=== PATIENT | male | born 1995 | race African-American/Black ===

== ENCOUNTER 2023-06-21 15:14 | Observation (INO) | payer BC, SELFPAY ==
--- NOTE | ~2023-06-21 | CT_ITS ---
EXAMINATION: CT thoracic spine wo con DATE: 06/21/2023 16:53 INDICATION: Mid back pain between the scapulae TECHNIQUE: Computed tomography (CT) of the thoracic spine was performed without intravenous contrast. Automated exposure control and iterative reconstruction technique were employed. The dose-length pro duct was 1598.33 mGy-cm. COMPARISON: None FINDINGS: Alignment is normal. Vertebral body heights are normal. No fracture. There is however a destructive l esion with aggressive appearing osteolysis involving the right lamina and pedicle of C7. No evident s urrounding inflammatory changes to suggest infection and resulting in high suspicion for malignancy. Mild disc height loss at T3-T4 through T9-T10 with tiny endplate osteophytes at a few levels. Central canal appears widely patent throughout. Multilevel minimal to mild bilateral thoracic facet osteoart hritis. No neural foraminal stenosis. Visualized portion of the lungs are clear. Paravertebral soft t issues are unremarkable. IMPRESSION: 1. Progressive appearing destructive lesion involving the right lamina and pedicle of C7 without surr ounding inflammatory stranding which raises concern for malignancy. Recommend further evaluation with pre and postcontrast MRI of the cervical spine. Given location there may also be involvement of the right vertebral artery and could also consider carotid CT angiogram. 2. Mild thoracic spondylosis. Reviewed, dictated and finalized at location A. IMPRESSION: 1. Progressive appearing destructive lesion involving the right lamina and pedi fidencio of C7 without surrounding inflammatory stranding which raises concern for m alignancy. Recommend further evaluation with pre and postcontrast MRI of the ce rvical spine. Given location there may also be involvement of the right vertebr al artery and could also consider carotid CT angiogram. 2. Mild thoracic spondylosis.
--- NOTE | ~2023-06-21 | MR_ITS ---
EXAMINATION: MR cervical spine wo/w con DATE: 06/22/2023 08:06 INDICATION: Lytic lesion at C7 TECHNIQUE: Magnetic resonance imaging (MRI) of the cervical spine was performed with 100 mL Omnipaque -350 intravenous contrast. Sequences included sagittal T2-weighted FSE, sagittal T2-weighted FS FSE, sagittal T1-weighted FSE, axial MERGE and axial T2-weighted FSE. COMPARISON: CT studies dated 06/21/2023 FINDINGS: Bone alignment is normal. Vertebral body heights are normal. Again noted is a destructive process in volving the right pedicle, lateral mass and transverse processes of C7. There is marrow edema and enh ancement extending into the right side of the vertebral body and right lamina of C7 but without signi ficant loss of the T1 hyperintense marrow fat signal which remains hyperintense to skeletal muscle. T here is decreased T1 signal, increased T2 signal and enhancement in the region of osteolysis. There i s an 11 x 10 x 8 mm central nonenhancing region which could represent central necrosis or potentially fluid collection such as abscess. Small amount of likely reactive edema and non masslike enhancement in the immediately adjacent paraspinal musculature. The region of abnormal enhancement involves both the right C6-C7 and C7-T1 neural foramina. There is no evident intrathecal involvement or mass effec t upon the thecal sac. No other bone lesions identified with otherwise normal marrow signal throughou t. Intervertebral discs are normal with normal height and signal. Cord signal intensity is normal. No abnormally enhancing cord lesions. The following disc levels are specifically discussed: C2-C3: The disc does not extend beyond the endplate margin. There is no uncovertebral joint osteoarth ritis. There is no facet joint osteoarthritis. There is no neural foraminal stenosis. There is no deirdre tral canal stenosis. C3-C4: The disc does not extend beyond the endplate margin. There is no uncovertebral joint osteoarth ritis. There is no facet joint osteoarthritis. There is no neural foraminal stenosis. There is no deirdre tral canal stenosis. C4-C5: Disc is mildly bulging. There is no uncovertebral joint osteoarthritis. There is no facet join t osteoarthritis. There is no neural foraminal stenosis. There is no central canal stenosis. C5-C6: The disc does not extend beyond the endplate margin. There is no uncovertebral joint osteoarth ritis. There is no facet joint osteoarthritis. There is no neural foraminal stenosis. There is no deirdre tral canal stenosis. C6-C7: The disc does not extend beyond the endplate margin. There is mild right uncovertebral joint o steoarthritis. There is no facet joint osteoarthritis. There is no stenosis of the osseous margins of the neural foramina. There is however replacement of the fat signal within the right neural foramen resulting from the enhancing soft tissue. There is no central canal stenosis. C7-T1: The disc does not extend beyond the endplate margin. There is no uncovertebral joint osteoarth ritis. There is no facet joint osteoarthritis. There is no stenosis of the osseous margins of the vadim ral foramina. There is however placement of the facet within the right neural foramen resulting from the enhancing soft tissue. There is no central canal stenosis. IMPRESSION: 1. Destructive process involving the right pedicle, lateral mass and transverse process of C7 with en hancing tissue extending into an replacing the fat signal at the right C6-C7 and C7-T1 neural foramen . Small central nonenhancing region which could represent central necrosis in the setting of malignan cy or small abscess in the setting of osteomyelitis. The elevated CRP level and sedimentation rate ra ises concern for the latter. 2. Otherwise unremarkable study with no other bone lesions and with negligible cervical spondylosis. Reviewed, dictated and finalized at location A.
--- NOTE | ~2023-06-21 | CT_ITS ---
EXAMINATION: CT cervical spine wo con DATE: 06/21/2023 16:53 INDICATION: neck painX2 weeks, radicular pain down arm TECHNIQUE: Computed tomography (CT) of the cervical spine was performed without intravenous contrast. Automated exposure control and iterative reconstruction technique were employed. The dose-length pro duct was 448.77 mGy-cm. COMPARISON: None. FINDINGS: Vertebral Body Alignment: Intact. Craniocervical and atlantoaxial alignment: Moderate degenerative change. Alignment intact. Osseous structures/fracture: Aggressive appearing lytic lesion in the right lateral aspect of C7 invo lving the right lamina and pedicle. No evidence of acute fracture. Cervical soft tissues: The paraspinal soft tissues planes are maintained. Degenerative changes: No significant degenerative changes. IMPRESSION: Aggressive lytic lesion involving the lateral elements of C7, concerning for malignancy. Recommend MR I of the cervical spine without and with contrast for further characterization. Given the location, a lso consider CT angiogram of the neck to evaluate for vertebral artery involvement. No acute fracture or traumatic malalignment in the cervical spine. Reviewed, dictated and finalized at location K. IMPRESSION: Aggressive lytic lesion involving the lateral elements of C7, concerning for ma lignancy. Recommend MRI of the cervical spine without and with contrast for fur ther characterization. Given the location, also consider CT angiogram of the ne ck to evaluate for vertebral artery involvement. No acute fracture or traumatic malalignment in the cervical spine.
--- NOTE | ~2023-06-21 | CT_ITS ---
EXAMINATION: CT chest abdomen pelvis w con DATE: 06/21/2023 20:33 INDICATION: malignancy w/u, C7 lesion, pulmonary nodule . TECHNIQUE: Computed tomography (CT) of the chest, abdomen, and pelvis was performed with 100 mL Omnip aque-350 intravenous contrast. Automated exposure control and iterative reconstruction technique were employed. The dose-length product was 1393.18 mGy-cm. COMPARISON: CT thoracic, cervical spine, and CTA brain carotid performed on the same date. FINDINGS: CHEST: Thoracic aorta: No significant dilation or calcification. Lung parenchyma and airways: Lungs and airways are clear. Thoracic inlet, axillae and chest wall: No thyroid or soft tissue mass. No axillary lymphadenopathy. Mediastinum: No mass or lymphadenopathy. Heart and pericardium: Normal heart size. No pericardial effusion. Coronary artery calcifications: Absent. Pleura: No effusion or mass. Thoracic bones: No acute osseous finding in the chest. ABDOMEN/PELVIS: Liver: Normal. Biliary/Gallbladder: Gallbladder is normal. No bile duct dilation. Pancreas: No mass or duct dilation. Spleen: Normal. Adrenals:No mass. Kidneys: No suspicious mass, obstructing stone, or hydronephrosis. GI tract: Mild distal esophageal and gastric wall edema. No small or large bowel dilation. Normal armen endix. Mesentery/Peritoneum: No ascites, mass, or free air. Retroperitoneum: No mass Pelvis: Pelvic organs are within normal limits Soft Tissues: Soft tissues and body wall unremarkable. Abdominopelvic bones: No acute osseous finding in the abdomen/pelvis. IMPRESSION: Redemonstration of the lytic right lateral C7 lesion. Posterior, pleural-based left upper lobe nodule, more consistent in appearance with atelectasis or be nign scarring/thickening, noting that malignancy cannot be excluded by imaging alone. Otherwise, no CT evidence of primary malignancy. Esophagitis/gastritis. Reviewed, dictated and finalized at location K. IMPRESSION: Redemonstration of the lytic right lateral C7 lesion. Posterior, pleural-based left upper lobe nodule, more consistent in appearance with atelectasis or benign scarring/thickening, noting that malignancy cannot b e excluded by imaging alone. Otherwise, no CT evidence of primary malignancy. Esophagitis/gastritis.
--- NOTE | ~2023-06-21 | CT_ITS ---
EXAMINATION: CTA brain carotid DATE: 06/21/2023 18:12 INDICATION: C7 lesion, concern for vertebral artery involvemen TECHNIQUE: Computed tomographic angiography (CTA) of the head was performed without and with 100 mL O mnipaque-350 intravenous contrast. CTA of the neck was performed with intravenous contrast. Automated exposure control and iterative reconstruction technique were employed. The dose-length product was 1 613.72 mGy-cm. Maximum intensity projection and volume rendered 3D-reconstructions were created by filiberto owens technologist on a separate workstation. COMPARISON: CT cervical and thoracic spine, same date. FINDINGS: CT BRAIN: No acute large vessel infarct, intracranial hemorrhage, mass, or hydrocephalus. Retention cysts/polyp s in the inferior bilateral maxillary sinuses. No abnormal enhancing lesion. Symmetric parenchymal en hancement. Patent cerebral veins. CTA HEAD: No large vessel occlusion, aneurysm, high flow vascular malformation, nidus or extravasation. CTA NECK: Aortic arch and proximal great vessels: Normal arch anatomy. Right common carotid, carotid bifurcation, and internal carotid artery: No plaque.There is 0% stenosi s of the proximal right internal carotid artery relative to normal distal artery lumen diameter (NASC ET criteria). Left common carotid, carotid bifurcation, and internal carotid artery: No plaque.There is 0% stenosis of the proximal left internal carotid artery relative to normal distal artery lumen diameter (NASCET criteria). Vertebral arteries: No significant plaque or stenosis. Other findings: Redemonstration of the aggressive right lateral C7 lesion no enhancing associated sof t tissue or inflammatory change. 9 mm pleural-based nodule in the left upper lobe. IMPRESSION: No large vessel occlusion or significant carotid/vertebral stenosis. Aggressive osseous lesion at C7, without involvement of the adjacent traversing vertebral artery. 9 mm pleural-based left upper lobe nodule. Reviewed, dictated and finalized at location K.
[2023-06-21 15:26] VITALS: BP 166/92; PULSE 86; RESP 18; TEMP 36.7; O2SAT 100
--- NOTE | 2023-06-21 16:45 | PC.NURSE ---
pt taken for CT at this time
[2023-06-21] MEDS: ACETAMINOPHEN 500 MG TABLET 1000 MG PO (17:03)
[2023-06-21] MEDS: KETOROLAC (*BKC) 60 MG/2 ML VIAL IM (17:03)
--- NOTE | 2023-06-21 17:18 | ED.BACK ---
HPI - Back Pain/Injury General Chief Complaint: Back Pain/Injury <NOEL Barnhart Last Filed: 06/21/23 20:50> Stated Complaint: back/neck pain <NOEL Barnhart Last Filed: 06/21/23 20:50> Time Seen by Provider: 06/21/23 15:32 <NOEL Barnhart Last Filed: 06/21/23 20:50> Source: patient <NOEL Barnhart Last Filed: 06/21/23 20:50> Mode of arrival: ambulatory <NOEL Barnhart Last Filed: 06/21/23 20:50> Limitations: no limitations <NOEL Barnhart Last Filed: 06/21/23 20:50> History of Present Illness HPI Narrative: Patient is a 27-year-old male who presents to the ED with report of right-sided back and neck pain. Patient reports he was working out on a bike 2 weeks ago and felt pain in his right upper back. He has had persistent pain since then, extending down from his neck on the right side and between his shoulder blades. He states pain is worse with movement, turning his head left or right or looking downward. He has had difficulty at work because of the pain. He is attempting to start FMLA with his primary care doctor. Patient reports having intermittent tingling down his right arm, but denies weakness or numbness. He has been taking ibuprofen for the pain. He has not taken anything for pain today. <NOEL Barnhart Last Filed: 06/21/23 20:50> Related Data Home Medications: Home Medications Medication Instructions Recorded Confirmed escitalopram oxalate 20 mg tablet 20 mg PO DAILY 06/21/23 06/21/23 ibuprofen 200 mg tablet 400 mg PO Q6H PRN Pain, Mild 06/21/23 06/21/23 <NOEL Barnhart Last Filed: 06/21/23 20:50> Allergies/Adverse Reactions: Allergies Allergy/AdvReac Type Severity Reaction Status Date / Time No Known Allergies Allergy Verified 06/21/23 15:25 <Eugenie Monreal PA-C - Last Filed: 06/21/23 20:50> Review of Systems Review of Systems: CONSTITUTIONAL: Denies fever, chills, or sweats. CARDIOVASCULAR: Denies chest pain. RESPIRATORY: Denies dyspnea. GASTROINTESTINAL: Denies abdominal pain, nausea, vomiting. MUSCULOSKELETAL: See HPI. NEUROLOGIC: See HPI. <Eugenie Monreal PA-C - Last Filed: 06/21/23 20:50> All systems reviewed & are unremarkable except as noted in HPI and below <Eugenie Monreal PA-C - Last Filed: 06/21/23 20:50> PMFSH Family History Family History: Family History (Updated 06/21/23 @ 23:30 by Svetlana Potter RN) Father Diabetes mellitus Grandparent Diabetes mellitus <Eugenie Monreal PA-C - Last Filed: 06/21/23 20:50> Social History Social History: Social History Smoking status: Never smoker Alcohol intake: never Substance use: never Lack of Transportation: No Lack of Food: Never True Current Housing: I Have Housing Concerned About Future Housing: No Difficulty Paying Gas/Electric Bills: No Difficulty Paying for Meds: No Currently Unemployed: No Education: High School Diploma/GED Difficulty w/ Childcare or Family Care: No Spiritual care concerns: No <Eugenie Monreal PA-C - Last Filed: 06/21/23 20:50> Exam Narrative: GENERAL: Well appearing, well-nourished, non-toxic, in no acute distress. HEAD: Normocephalic, atraumatic. NECK: Supple. No adenopathy, no masses. Mild lower midline cervical spinal tenderness. No palpable bony deformities. Right sided paraspinal muscle tenderness extending into trapezius. RESPIRATORY: Airway patent, respirations nonlabored. Clear to auscultation bilaterally, no rales, rhonchi, wheezing. CARDIOVASCULAR: Regular rate and rhythm without murmurs, rubs, or gallops. Peripheral pulses 2+ and equal bilaterally. ABDOMINAL: Soft, nontender, nondistended, no hepatosplenomegaly. Normoactive BS. MUSCULOSKELETAL: Moves all extremities. Strength/ROM intact without
[2023-06-21 18:04] LABS: Estimated CRCL calculation 93 ml/min; Estimated Glomerular Filt Rate > 60
[2023-06-21 18:31] LABS: Basophils Percent Auto 0.4 % (0.2-1.2); Hematocrit 39.9 % (42.0-52.0); Immature Granulocyte Absolute 0.01 K/mm3 (0.00-0.031); Immature Granulocyte Percent A 0.2 % (0-0.5); Lymphocytes Absolute Auto 1.38 K/mm3 (0.9-3.2); Mean Corpuscular HGB Conc 32.6 g/dl (32-36); Mean Corpuscular Hemoglobin 29.5 pg (26-34); Mean Corpuscular Volume 90.7 fl (80-100); Mean Platelet Volume 10.1 fl (7.4-10.4); Monocytes Absolute Auto 0.3 K/mm3 (0.1-0.6); Monocytes Percent Auto 5.6 % (2.6-8.5); Neutrophils Absolute Auto 3.8 K/mm3 (1.3-6.7); Neutrophils Percent Auto 68.8 % (45.5-73.1); Platelet Count Result 266 k/mm3 (150-375); Red Cell Distribution Width 13.2 % (11.5-14.5); White Blood Count 5.5 K/mm3 (4.5-10.0)
[2023-06-21 18:35] LABS: CRP 1.4 mg/dL (<1.0)
[2023-06-21 18:45] LABS: Prothrombin Time 13.8 Seconds (11.1-14.7)
[2023-06-21 18:46] LABS: Partial Thromboplastin Time 30.2 SECONDS (22.3-36.8)
[2023-06-21 18:50] LABS: Alanine Aminotransferase 28 U/L (6-50); Albumin Level 4.8 g/dL (3.5-5.1); Alkaline Phosphatase 81 U/L (38-126); Anion Gap 10 mmol/L (8-16); Aspartate Amino Transferase 33 U/L (17-59); Bilirubin,Total 0.6 mg/dL (0.2-1.3); Blood Urea Nitrogen 15 mg/dL (9-20); Calcium 9.7 mg/dL (8.4-10.2); Carbon Dioxide 24 mmol/L (22-30); Chloride 108 mmol/L (98-107); Estimated CRCL calculation 109 ml/min; Estimated Glomerular Filt Rate > 60; Glucose 103 mg/dL (65-110); Potassium 3.9 mmol/L (3.4-5.0); Sodium 142 mmol/L (137-145)
[2023-06-21 19:02] VITALS: BP 150/78; PULSE 88; RESP 16; O2SAT 100
[2023-06-21 19:30] LABS: Erythrocyte Sedimentation Rate 25 mm/hr (0-20)
[2023-06-21 20:11] VITALS: BP 138/77; PULSE 68; RESP 18; O2SAT 100
[2023-06-21 22:41] VITALS: BP 128/69; PULSE 75; RESP 18; O2SAT 100
[2023-06-21 22:55] VITALS: BP 130/71; PULSE 64; RESP 18; TEMP 36.3; O2SAT 99; BMI 35.7
--- NOTE | 2023-06-21 22:56 | ADMGEN ---
This patient, Albaro Balbuena, was admitted to Medical Room 246-01. Patient/family oriented to hospital policies and general routines including ID bracelet, bed and alarms, visiting hours, pain management, procedures, bathroom and other care routines, personal items, smoking policy, room service/diet, and visiting hours. Information on how to activate the Rapid Response Team has been discussed. Patient/Family are encouraged to report perceived risks to care and to ask questions if they do not understand what they are told or what they should do.
[2023-06-22] MEDS: GABAPENTIN 300 MG CAPSULE PO ×2 (00:02→08:25)
[2023-06-22] MEDS: ZOLPIDEM TARTRATE (*CRX) 5 MG TABLET PO (00:02)
[2023-06-22 05:25] VITALS: BP 130/67; PULSE 66; RESP 18; TEMP 37.1; O2SAT 100
--- NOTE | 2023-06-22 08:10 | PM.IMHP ---
H&P: HPI History of Present Illness Date/Time: 06/22/23 08:10 Chief Complaint: Back pain/injury Back/neck pain Narrative: Patient is a 27-year-old male who presented to the ED with report of right side back and neck pain. Patient stated that he was working out and started to feel pain in his right upper back while riding a bike which happened 2 weeks ago. He reports the pain radiates down his arm and noted some decreased sensation as well. It was interfering with work since his job is more physical and his pain increased with movement. He is currently attempting to start FMLA with his PCP. he has taken ibuprofen for pain at home which provides him enough symptom relief as long as he is not doing strenuous work. Workup in ER includes CT cervical spine without contrast which revealed an aggressive lytic lesion involving the lateral elements of C7, concerning for malignancy. Given the location the lesion on CT a of the head and neck was also done due to concerns for vertebral artery involvement. A CTA of of brain and carotid arteries revealed aggressive osseous lesion at C7, without involvement of the adjacent transversing vertebral artery, and a 9 mm pleural-based left upper lobe nodule. CT of thoracic spine without contrast revealed progressive appearing destructive lesion involving the right lamina and pedicle of C7 without surrounding inflammatory stranding which raises concerns for malignancy, mild thoracic spondylosis. CT of chest abdomen pelvis with contrast again revealed the lytic right lateral C7 lesion, and a posterior pleural-based left upper lobe nodule more consistent in appearance with atelectasis or benign scarring thickening however malignancy cannot be excluded by imaging alone. Labs are essentially unremarkable with the exception of C reactive protein at 1.4 and ESR 25. Neurosurgery was consulted. Plan for cervical spine MRI today with and without contrast to further evaluate the lesion at C7. The patient was started Neurontin 300 mg b.i.d. and given a dose Toradol 60 mg while in the ER. On examination today he denies pain at this time. He had limited ROM in his neck and reports that he had pain down his right arm with decreased sensation in that extremity. He denies headache, tingling, numbness, blurred vision. Discussed CT scans with patient and answered questions regarding the results of his scans. Review of Systems Constitutional: Constitutional: Reports as per HPI Eyes: Eyes: Reports as per HPI and Reports no additional eye complaints ENT: Reports system reviewed and no additional complaints, except as documented and Reports Normal hearing present Cardiovascular: Comments: Denies chest pain, SOB Respiratory: Comments: Denies SOB or cough Gastrointestinal: Gastrointestinal: Reports no additional gastrointestinal complaints Comments: Denies nausea, vomiting, diarrhea Genitourinary: Genitourinary: Reports no additional male genitourinary complaints Musculoskeletal: Musculoskeletal: Reports neck pain and Reports stiffness Comments: Reports neck and back pain that radiates down right arm. Limited ROM in neck. Integumentary/Breasts: Skin/Breast: Reports system reviewed and no additional complaints, except as docu Comments: Previous Cutaneous T-cell lymphoma mycosis fungoides Neurologic: Comments: Denies headache, confusion, lightheadedness, numbness, or tingling. Psychiatric: Psychiatric: Reports depression [facility] Past Medical History Medical History (Updated 06/22/23 @ 14:46 by Shu Castellanos APRN) Cutaneous T-cell lymphoma Depression Family History Family History Father Diabetes mellitus Grandparent Diabetes mellitus Social History Social History Smoking status: Never smoker Alcohol intake: never Substance use: never Lack of Transpo
[2023-06-22] MEDS: ESCITALOPRAM OXALATE 10 MG TABLET 20 MG PO (08:25)
--- NOTE | 2023-06-22 14:26 | WPDNEUROSGCN ---
Assessment and Plan Assessment and plan (1) Lesion of bone of cervical spine: Code(s): M89.9 - Disorder of bone, unspecified Status: Acute Plan Albaro Balbuena is a very pleasant 27 year old male who presents with radiographic findings of an enhancing lytic lesion involving the right lateral mass and pedicle of the C7 vertebral body. The patient has a normal WBC count and mild elevation of CRP and ESR but no systemic signs to suggest an infectious process. Malignancy is a more suspected diagnosis. We will likely need to pursue biopsy versus resection of the lesion and given the proximity to the vertebral artery and lack of availability of interventional radiology, I would recommend that the patient discharge to home with short interval follow up with me in the office to discuss options including biopsy versus resection. We will work to get records from the patient's operations general agent to have additional information as regards his prior diagnosis of T cell lymphoma. Any steroid medications should be held as these medications can impact pathological diagnostic accuracy. Consult date: 06/22/23 HPI: Albaro Blabuena is a 27 year old RHD male who presents through the ED with an intermittent history of neck and right upper extremity pain. The patient describes symptoms of neck and paraspinal pain as well as some radiation behind the left shoulder and into the forearm and hand, particularly with more vigorous physical activity. In the ED the patient underwent CT imaging of the cervical spine that showed a lesion involving the right pedicle and lateral mass with bony destruction. A subsequent CAP CT shows a non specific pulmonary nodule but no other evidence to suggest metastatic disease. CT imaging of the thoracic spine and the lumbar spine as visualized on the A/P CT did not show any other bony lesions. a CTA showed the vertebral artery just ventral to the mass on the right. The patient denies significant pain today. He denies sensory change. He denies motor weakness. He does have a history of a cutaneous T cell lymphoma treated by a operations general agent 2 years ago. He has no known history of metastatic disease. He also notes that he has a history of meningitis as a child. He was admitted due to this new finding for evaluation and recommendations regarding next steps in treatment. [facility] Past Medical History Medical History (Updated 06/22/23 @ 14:46 by Shu Castellanos APRN) Cutaneous T-cell lymphoma Depression Family History Family History Father Diabetes mellitus Grandparent Diabetes mellitus Social History Social History Smoking status: Never smoker Alcohol intake: never Substance use: never Lack of Transportation: No Lack of Food: Never True Current Housing: I Have Housing Concerned About Future Housing: No Difficulty Paying Gas/Electric Bills: No Difficulty Paying for Meds: No Currently Unemployed: No Education: High School Diploma/GED Difficulty w/ Childcare or Family Care: No Spiritual care concerns: No Meds Home Medications and Allergies Home Medications Medication Instructions Recorded Confirmed Type escitalopram oxalate 20 mg tablet 20 mg PO DAILY 06/21/23 06/21/23 History ibuprofen 200 mg tablet 400 mg PO Q6H PRN Pain, Mild 06/21/23 06/21/23 History Allergies Allergy/AdvReac Type Severity Reaction Status Date / Time No Known Allergies Allergy Verified 06/21/23 15:25 Vital Signs Vital Signs - 24 hr 06/21/23 15:26 06/21/23 19:02 06/21/23 20:11 Temperature 98.1 F Pulse Rate 86 88 68 Respiratory Rate 18 16 18 Blood Pressure 166/92 H 150/78 H 138/77 Pulse Oximetry 100 100 100 Oxygen Delivery 06/21/23 22:41 06/21/23 22:55 06/21/23 23:29 Temperature 97.4 F L Pulse Rate 75 64 Respiratory Rate 18 18 Blood Pressure 128/69 130/71 Pulse Oximetr
[2023-06-22 14:58] VITALS: BP 139/65; PULSE 84; RESP 18; TEMP 36.6; O2SAT 99
--- NOTE | 2023-06-22 14:58 | PM.DS ---
DS: Admitting Diagnosis Discharge Date 06/22/2023 Admitting Diagnosis back pain/ injury back / neck pain DS: Discharge Diagnosis Discharge Diagnosis (1) Lesion of bone of cervical spine: Code(s): M89.9 - Disorder of bone, unspecified Status: Acute (2) Cervical disc disorder with radiculopathy of cervicothoracic region: Code(s): M50.13 - Cervical disc disorder with radiculopathy, cervicothoracic region Status: Acute Assessment and Plan: (3) Pulmonary nodule: Code(s): R91.1 - Solitary pulmonary nodule Status: Acute (4) Depression: Qualifiers: Depression Type: unspecified Qualified Code(s): F32.A - Depression, unspecified Code(s): F32.A - Depression, unspecified Status: Acute DS: Summary Hospital Course Reason for hospitalization: Neck pain with imaging findings concerning for malignancy Hospital Course: patient is a 27-year-old male who presented to the ED with report of right side back and neck pain. Patient stated that he is working out and started to feel pain in his right upper back while riding a bike which happened about 2 weeks ago. He reports that the pain radiated down his arm and noted decreased sensation in the right upper extremity. Workup in the ER included a CT cervical spine without contrast which revealed an aggressive lytic lesion involving the lateral elements of C7, concerning for malignancy. Given the location of the lesion on CTA of the head and neck was performed due to concerns for vertebral artery involvement. The CTA of the brain and carotid arteries revealed aggressive osseous lesion at C7, without involvement of the adjacent transverse vertebral artery, and a 9 mm pleural-based left upper lobe nodule was present. CT of the thoracic spine without contrast revealed progressive appearing destructive lesion involving the right lamina and pedicle of C7 without surrounding inflammatory stranding which raises concern for malignancy. CT of the chest abdomen pelvis without contrast again revealed a lytic right lateral C7 lesion, and a posterior pleural based left upper lobe nodule more consistent in appearance with atelectasis are benign scarring however malignancy could not be excluded by the imaging alone. Labs are essentially unremarkable with the exception of the C reactive protein which was 1.4 and ESR 25. Patient was in MRI of the cervical spine with and without contrast today which revealed destructive process involving the right pedicle, lateral mass and transverse process of C7 with enhancing tissue extending into and replacing fat signal at the right C6- C7 and C7- T1 neural foramen. Small central nonenhancing region which could represent central necrosis in the setting of malignancy or small abscess in the setting of osteomyelitis the elevated CRP level and sed rate raises concerns for malignancy. After neurosurgery evaluation and they felt that the patient can be treated on an outpatient basis. Neurosurgery discussed plans for outpatient biopsy versus resection of the lesion given the proximity to the vertebral artery his facility that has interventional radiology on standby. He has follow-up with Neurosurgery in 2 weeks and to remain off work until after diagnosis. Patient agrees plan. Status at Discharge Cognitive/behavioral status at discharge: Alert and oriented x4, pleasant. Functional status at discharge: independent ambulation Time Spent with Patient Time attestation: Total time spent providing and/or coordinating discharge services: Time spent: Greater than 30 minutes Exam Narrative: GENERAL: Well appearing, well-nourished, non-toxic, in no acute distress. HEAD: Normocephalic, atraumatic. NECK: Supple. No lymphodenopathy, limited ROM RESPIRATORY: Airway patent, respirations nonlabored. Clear to auscultation bilaterally, no rales, rhonchi, wheezing. CARDIOVASCULAR: Regular rate and rhythm without murmurs, rubs, or gal
== END 2023-06-22 16:00 | disposition home or self-care (01) ==
LOC: ANHED 20:11 → ANH2MED 22:43 → ANH3MEDSUR 06-23 10:27
PROVIDERS: Admitting Provider Internal Medicine; Emergency Provider Physician Assistant; Visit Provider Student in an Organized Health Care Education/Training Program
DX: M89.9 Disorder of bone, unspecified (principal); M50.13 Cervical disc disorder with radiculopathy, cervicothoracic region; R91.1 Solitary pulmonary nodule; F32.A Depression, unspecified; R20.2 Paresthesia of skin; Z79.1 Long term (current) use of non-steroidal anti-inflammatories (NSAID); Z79.899 Other long term (current) drug therapy
CPT/HCPCS: 70496; 70498; 71260; 72125; 72128; 72156; 74177; 80053; 85025; 85610; 85652; 85730; 86140; 96372; 99285; A9270; A9577; G0378; J1885; L0140; Q9967

== ENCOUNTER 2023-09-08 12:54 | Outpatient (CLI) | payer BC, SELFPAY ==
--- NOTE | ~2023-09-08 | MR_ITS ---
EXAMINATION: MR cervical spine wo/w con DATE: 09/08/2023 14:18 INDICATION: Cervical spine mass. TECHNIQUE: Magnetic resonance imaging (MRI) of the cervical spine was performed without and with 20 m L MultiHance intravenous contrast. COMPARISON: Cervical spine MRI 06/22/2023, CT 06/21/2023 FINDINGS: There is kyphosis of cervical spine. Vertebral body heights and intervertebral disc heights are normal. There is bone marrow edema and enhancement at the right C6-C7 facet joint and involving the right C7 transverse process. The spinal cord signal intensity is normal. The following disc level s are specifically discussed: C2-C3: The disc does not extend beyond the endplate margin. There is mild bilateral uncovertebral julio nt osteoarthritis. There is no facet joint osteoarthritis. There is no neural foraminal stenosis. The re is no central canal stenosis. C3-C4: The disc does not extend beyond the endplate margin. There is no uncovertebral joint osteoarth ritis. There is no facet joint osteoarthritis. There is no neural foraminal stenosis. There is no deirdre tral canal stenosis. C4-C5: The disc does not extend beyond the endplate margin. There is no uncovertebral joint osteoarth ritis. There is no facet joint osteoarthritis. There is no neural foraminal stenosis. There is no deirdre tral canal stenosis. C5-C6: The disc does not extend beyond the endplate margin. There is no uncovertebral joint osteoarth ritis. There is no facet joint osteoarthritis. There is no neural foraminal stenosis. There is no deirdre tral canal stenosis. C6-C7: The disc does not extend beyond the endplate margin. There is no uncovertebral joint osteoarth ritis. There are erosions of the right facet joint. There is mild left facet joint osteoarthritis. Th ere is no neural foraminal stenosis. There is no central canal stenosis. C7-T1: The disc does not extend beyond the endplate margin. There is no uncovertebral joint osteoarth ritis. There is moderate right and severe left facet joint osteoarthritis. There is mild left neural foraminal stenosis. There is no central canal stenosis. IMPRESSION: 1. Erosions of the right C6-C7 facet joint and bone marrow edema and enhancement in the right C7 pearson sverse process with improvement from 06/22/2023, consistent with septic arthritis and osteomyelitis. Reviewed, dictated and finalized at location E. ANALYST IMPRESSION: 1. Erosions of the right C6-C7 facet joint and bone marrow edema and enhancemen t in the right C7 transverse process with improvement from 06/22/2023, consisten t with septic arthritis and osteomyelitis.
--- NOTE | ~2023-09-08 | CT_ITS ---
EXAMINATION: CT cervical spine wo/w con DATE: 09/08/2023 13:25 INDICATION: Cervical spinal mass. TECHNIQUE: Computed tomography (CT) of the cervical spine was performed without intravenous contrast. Automated exposure control and iterative reconstruction technique were employed. The dose-length pro duct was 1034.20 mGy-cm. COMPARISON: Cervical spine MRI 06/22/2023, CT 06/21/2023 FINDINGS: There is kyphosis and 4 degrees dextrocurvature of cervical spine. Vertebral body heights a nd intervertebral disc heights are normal. The following disc levels are specifically discussed: C2-C3: There is mild bilateral uncovertebral joint osteoarthritis. There is no facet joint osteoarthr itis. There is no neural foraminal stenosis. There is no central canal stenosis. C3-C4: There is no uncovertebral joint osteoarthritis. There is no facet joint osteoarthritis. There is no neural foraminal stenosis. There is no central canal stenosis. C4-C5: There is no uncovertebral joint osteoarthritis. There is no facet joint osteoarthritis. There is no neural foraminal stenosis. There is no central canal stenosis. C5-C6: There is no uncovertebral joint osteoarthritis. There is no facet joint osteoarthritis. There is no neural foraminal stenosis. There is no central canal stenosis. C6-C7: There is no uncovertebral joint osteoarthritis. There is mild left facet joint osteoarthritis. There are erosions of the right facet joint. There is a permeative lytic lesion in right C7 transver se process. There is no neural foraminal stenosis. There is no central canal stenosis. C7-T1: There is no uncovertebral joint osteoarthritis. There is moderate right and severe left facet joint osteoarthritis. There is no neural foraminal stenosis. There is no central canal stenosis. IMPRESSION: 1. Erosions of the right C6-C7 facet joint and permeative lytic pattern in the right C7 transverse pr ocess with improvement from 06/21/2023, consistent with septic arthritis and osteomyelitis. 2. Mild cervical spondylosis. Reviewed, dictated and finalized at location E. ITURE ARRANGER IMPRESSION: 1. Erosions of the right C6-C7 facet joint and permeative lytic pattern in the right C7 transverse process with improvement from 06/21/2023, consistent with se ptic arthritis and osteomyelitis. 2. Mild cervical spondylosis.
== END 2023-09-08 12:55 | disposition home or self-care (01) ==
PROVIDERS: Visit Provider Neurological Surgery
DX: M43.06 Spondylolysis, lumbar region (principal); G95.89 Other specified diseases of spinal cord
CPT/HCPCS: 72127; 72156; A9577; Q9967